=== PATIENT | male | born 1995 | race Two or more races ===

== ENCOUNTER 2022-06-06 19:17 | Emergency (ER) | payer SELFPAY ==
[~2022-06-06] VITALS: Ht 167.6 cm; Wt 95.0 kg
[2022-06-06 20:37] VITALS: BP 128/64
[2022-06-06] MEDS ORDERED: LIDOCAINE 1% HCL (LOCAL ANESTH.) INJ 20ML MDV ID ONE (23:45)
[2022-06-07] MEDS ORDERED: IBUP800T27 PO (00:17)
[2022-06-07] MEDS ORDERED: CEPH-510 PO (00:17)
== END 2022-06-07 00:38 | disposition home or self-care (01) ==
LOC: ER 19:22
DX: S81.012A Laceration without foreign body, left knee, initial encounter (principal); F17.210 Nicotine dependence, cigarettes, uncomplicated; W26.8XXA Contact with other sharp object(s), not elsewhere classified, initial encounter; Y93.89 Activity, other specified; Y92.89 Other specified places as the place of occurrence of the external cause; Y99.8 Other external cause status
CPT/HCPCS: 12002; 29505; 73562; 99283; J2001

== ENCOUNTER 2023-06-19 21:44 | Emergency (ER) | payer SELFPAY ==
[~2023-06-19] VITALS: Ht 195.6 cm; Wt 95.5 kg
[~2023-06-19 21:44] MED LIST: CEPH-510 PO; IBUP-1456 PO
[2023-06-19 22:00] VITALS: BP 142/68; PULSE 90; RESP 18; O2SAT 96
[2023-06-20] MEDS ORDERED: CEPH500C PO (00:40)
[2023-06-20] MEDS ORDERED: CLIN300C70 PO (00:40)
[2023-06-20] MEDS: cefTRIAXone SOD 1,000 MG VL IM ONE (00:45)
== END 2023-06-20 00:51 | disposition home or self-care (01) ==
LOC: ER 21:44
DX: L03.312 Cellulitis of back [any part except buttock and flank] (principal); F17.210 Nicotine dependence, cigarettes, uncomplicated; Z79.899 Other long term (current) drug therapy
CPT/HCPCS: 96372; 99283; J0696